=== PATIENT | female | born 1990 | race African-American/Black ===

== ENCOUNTER → 2018-10-16 | Emergency (ER) | payer MEDICAID ==
[~2018-10-16] VITALS: Ht 162.6 cm; Wt 54.4 kg
[~2018-10-16] MED LIST: DiphenhydrAMINE 50mg/ml Inj IM ONE; Haloperidol 5mg/ml Inj IM ONE; LORazepam Inj 2mg/ml 1ml IM ONE; LR 1000ml 1,000 ML IV SCH
[2018-10-16 13:28] VITALS: BP 147/78
--- NOTE | 2018-10-16 13:48 | Emergency Room Report ---
History of Present Illness General Chief Complaint: Behavioral Complaint Source: Patient, EMS Present Illness HPI 28-year-old female history of psychiatric illness presents with bizarre year unknown start date unknown mental illness, patient is refusing to answer questions. Patient denies any SI HI. Patient states she wants to leave and cannot be held. Allergies: Coded Allergies: No Known Allergies (Unverified , 10/16/18) Patient History Limited by: medical condition - Patient refusing to answer questions Last Menstrual Period: unk Now: No Reviewed Nursing Documentation: PMH: Agreed; PSxH: Agreed Nursing Documentation-PMH Past Medical History: No History, Except For Hx Neurological Problems: Yes - drug abuse Review of Systems All Other Systems: limited - Patient refusing to answer questions Physical Exam Vital Signs Date Time Temp Pulse Resp B/P (MAP) Pulse Ox O2 Delivery O2 Flow Rate FiO2 10/16/18 13:28 97.9 98 18 147/78 (101) 99 Sp02 EP Interpretation: reviewed, normal General Appearance: well appearing, alert Head: normocephalic, atraumatic Eyes: bilateral eye PERRL, bilateral eye EOMI ENT: normal ENT inspection, normal voice Neck: supple, thyroid normal, supple/symm/no masses Respiratory: no respiratory distress, no retraction Musculoskeletal: normal inspection Neurologic: alert, responsive Psychiatric: no suicidal/homicidal ideation, anxious Skin: no rash, warm/dry Medical Decision Making Diagnostic Impression: Primary Impression: Behavioral disorder ER Course 28-year-old female presents with behavioral disorder, patient denies any SI HI patient stood up stated I am currently not on a hold and I can leave, she is refusing to answer questions she is going on tangents however cannot be held against her well. Last Vital Signs Date Time Temp Pulse Resp B/P (MAP) Pulse Ox O2 Delivery O2 Flow Rate FiO2 10/16/18 13:28 97.9 98 18 147/78 (101) 99 Disposition: ELOPED Condition: Stable Referrals: [facility] Patient Instructions: Self-Destructive Behavior Additional Instructions: The patient was provided with discharge instructions, notified to follow-up with a primary care doctor and or specialist in the next 24-48 hours, and to return to the ED if they have worsening of their symptoms. Please note that this report is being documented using Pins technology. This can lead to erroneous entry secondary to incorrect interpretation by the dictating instrument. Esequiel Sanchez MD Oct 16, 2018 13:48
--- NOTE | 2018-10-16 17:21 | NUR ---
ED Nurse Note: no contact with pt. pt eloped .
== END | disposition left against medical advice (07) ==
LOC: EDBD 13:35 → EMR 13:54
DX: F91.9 Conduct disorder, unspecified (principal); F19.10 Other psychoactive substance abuse, uncomplicated
CPT/HCPCS: 96372; 99284